=== PATIENT | male | born 1995 | race Caucasian/White ===

== ENCOUNTER 2021-06-14 12:33 | Emergency (ER) | payer BC, SELFPAY ==
[2021-06-14 12:35] VITALS: BP 144/85; PULSE 98; RESP 18; TEMP 36.7; O2SAT 100
[2021-06-14 12:55] LABS: Basophils Percent Auto 0.3 % (0.2-1.2); Eosinophils Absolute Auto 0.1 K/mm3 (0-0.3); Eosinophils Percent Auto 1.8 % (0-4.4); Hematocrit 47.1 % (42.0-52.0); Hemoglobin 16.5 g/dL (14.0-18.0); Immature Granulocyte Absolute 0.01 K/mm3 (0.00-0.031); Immature Granulocyte Percent A 0.2 % (0-0.5); Lymphocytes Absolute Auto 1.27 K/mm3 (0.9-3.2); Lymphocytes Percent Auto 20.2 % (18.3-44.2); Mean Corpuscular Hemoglobin 30.6 pg (26-34); Mean Corpuscular Volume 87.4 fl (80-100); Mean Platelet Volume 9.7 fl (7.4-10.4); Monocytes Absolute Auto 0.8 K/mm3 (0.1-0.6); Monocytes Percent Auto 12.4 % (2.6-8.5); Neutrophils Absolute Auto 4.1 K/mm3 (1.3-6.7); Neutrophils Percent Auto 65.1 % (45.5-73.1); Platelet Count Result 212 k/mm3 (150-375); Red Blood Count 5.39 M/mm3 (4.6-6.20); Red Cell Distribution Width 12.5 % (11.5-14.5); White Blood Count 6.3 K/mm3 (4.5-10.0)
[2021-06-14 13:05] LABS: Ethanol < 10 mg/dL (<10)
[2021-06-14 13:31] LABS: Alanine Aminotransferase 37 U/L (4-50); Alkaline Phosphatase 88 U/L (38-126); Anion Gap 10 mmol/L (8-16); Aspartate Amino Transferase 30 U/L (17-59); Bilirubin,Total 1.1 mg/dL (0.2-1.3); Blood Urea Nitrogen 14 mg/dL (9-20); Calcium 9.3 mg/dL (8.4-10.2); Carbon Dioxide 27 mmol/L (22-30); Chloride 102 mmol/L (98-107); Estimated CRCL calculation 140 ml/min; Estimated Glomerular Filt Rate > 60; Glucose 109 mg/dL (65-110); Sodium 139 mmol/L (137-145)
--- NOTE | 2021-06-14 14:02 | ED.GENADULT ---
HPI - General Adult General Chief complaint: Psychiatric Symptoms Stated complaint: psych Time Seen by Provider: 06/14/21 13:44 Source: patient Mode of arrival: ambulatory Limitations: no limitations History of Present Illness HPI narrative: Patient 25-year-old male who presents the ED with reports of depression and recent SI. Patient reports he had significant depression in 2016 and was started on antidepressants at that time. He is unsure of the name of these. He began feeling better with his depression and was taken off antidepressants. He was tapered properly. He has not been on antidepressants in the past 2 years. Since February 2021, patient reports having increased depressive symptoms, including apathy, decreased sleep, low energy, and intermittent suicidal thoughts. He does not have a plan to commit suicide and does not think he would ever go through with this. He has engaged in some self-harm over the last couple weeks including poking himself with a sharp knife. No cuts. He has an appointment to see a psychiatrist on 18 of July but did not feel he could wait that long, prompting his presentation to the ED today. No homicidal ideation, AVH. Patient denies any fever, chills, chest pain, shortness of breath, abdominal pain, nausea, vomiting, headache. Related Data Allergies Allergy/AdvReac Type Severity Reaction Status Date / Time No Known Allergies Allergy Unknown Unverified 03/20/18 08:22 Review of Systems Review of Systems: CONSTITUTIONAL: Denies fever, chills, or sweats. CARDIOVASCULAR: Denies chest pain. RESPIRATORY: Denies dyspnea. GASTROINTESTINAL: Denies abdominal pain, nausea, vomiting. MUSCULOSKELETAL: Denies back pain, joint pain, or myalgia. NEUROLOGIC: Denies headache, numbness, or weakness. PSYCHIATRIC: Reports depression, SI, self-harm. Denies HI, AVH. All systems reviewed & are unremarkable except as noted in HPI and below PMFSH Past Medical History Medical History (Updated 06/14/21 @ 18:30 by Karen Chapman PA-C) Depression Surgical History Surgical History (Updated 06/14/21 @ 18:30 by Karen Chapman PA-C) No pertinent past surgical history Social History Social History (Updated 06/14/21 @ 18:31 by Karen Chapman PA-C) Smoking status: Never smoker Alcohol intake: current Substance use type: does not use Exam Narrative: GENERAL: Well appearing, well-nourished, non-toxic, in no acute distress. HEAD: Normocephalic, atraumatic. NECK: Supple. No adenopathy, no masses. RESPIRATORY: Airway patent, respirations nonlabored. Clear to auscultation bilaterally, no rales, rhonchi, wheezing. CARDIOVASCULAR: Regular rate and rhythm without murmurs, rubs, or gallops. Peripheral pulses 2+ and equal bilaterally. MUSCULOSKELETAL: Moves all extremities. Strength/ROM intact without gross deformities or TTP. No edema. No calf tenderness. SKIN: Warm, dry, normal color. No rashes. NEURO: A&O X3. Speech clear. Cranial nerves II-XII grossly intact. Steady gait. No ataxic movements. PSYCHIATRIC: Mildly depressed mood. Appropriate affect. Normal interaction. Course Reevaluation(s) Reevaluation #1: Patient is medically cleared to undergo psychiatric evaluation by crisis. Date: 06/14/21 Time: 15:17 Vital Signs Vital signs: Vital Signs Temperature 98.1 F 06/14/21 12:35 Pulse Rate 98 06/14/21 12:35 Respiratory Rate 18 06/14/21 12:35 Blood Pressure 144/85 H 06/14/21 12:35 Pulse Oximetry 100 06/14/21 12:35 Temperature 98.1 F 06/14/21 12:35 Pulse Rate 98 06/14/21 12:35 Respiratory Rate 18 06/14/21 12:35 Blood Pressure 144/85 H 06/14/21 12:35 Pulse Oximetry 100 06/14/21 12:35 Medical Decision Making [facility] Narrative Medical decision making narrative: Patient presented to ED with worsening depression over the last couple months with intermittent suicidal ideation. Vital signs stable upon arrival. Laboratory evaluation unremarkable. No leukocytosis. No anemia. No
[2021-06-14 14:43] LABS: Add Urine Microscopic? NO; Appearance Urine Clear (Clear); Bilirubin Urine Negative (Negative); Blood Urine Negative (Negative); Color Urine Yellow (Yellow); Glucose Urine UA Negative (Negative); Ketones Urine Negative (Negative); Leukocyte Esterase Ur Negative LEU/UL (Negative); Nitrate Urine Negative (Negative); Protein Urine Negative (Negative); Specific Grav Ur 1.017 (1.001-1.035); Urobilinogen Urine Negative mg/dL (<2.0)
[2021-06-14 15:08] LABS: Amphetamine Screen Urine Negative (Negative); Barbiturate Screen Urine Negative (Negative); Benzodiazepines Screen Urine Negative (Negative); Cannabinoid Screen Urine Negative (Negative); Cocaine Screen Urine Negative (Negative); Methadone Screen Urine Negative (Negative); Opiate Screen Urine Negative (Negative); Phencyclidine Screen Urine Negative (Negative)
[2021-06-14 18:32] VITALS: BP 122/78; PULSE 75; RESP 16; O2SAT 98
== END 2021-06-14 18:34 | disposition home or self-care (01) ==
PROVIDERS: Emergency Provider Emergency Medicine; PCP Family Medicine
DX: F32.A Depression, unspecified (principal)
CPT/HCPCS: 36415; 80053; 80307; 81003; 84443; 85025; 99284

== ENCOUNTER 2021-08-26 15:02 | Emergency (ER) | payer OTHER, BC, SELFPAY ==
--- NOTE | ~2021-08-26 | CT_ITS ---
EXAMINATION: CT brain wo con DATE: 08/26/2021 16:25 INDICATION: Head injury. Dizziness. Nausea. TECHNIQUE: Computed tomography (CT) of the head was performed without intravenous contrast. The mA wa s adjusted according to patient size. Iterative reconstruction technique was employed. Exam dose: 60 5.33 mGy-cm total exam DLP. COMPARISON: None FINDINGS: No intracranial mass lesion or hemorrhage, encephalomalacia, midline shift or mass effect. Normal ventricular size. Normal thomas-white matter differentiation. No subdural or epidural hematoma. No fracture or bone destruction of the cranial vault. There is mild echograms thickening of left frontal sinus and the ethmoid air cells and left sphenoid sinus. Slight mucoperiosteal thickening of right maxillary and sphenoid sinuses. The mastoid air cell s are normally developed and aerated. IMPRESSION: No intracranial abnormality or skull fracture Reviewed, dictated and finalized at [facility]. Reviewed, dictated and finalized at [facility].
[2021-08-26 15:08] VITALS: BP 138/77; PULSE 90; RESP 16; TEMP 36.6; O2SAT 100
--- NOTE | 2021-08-26 16:25 | ED.HEATRA ---
HPI - Head Injury General Chief complaint: Head Injury Stated complaint: head injury Time Seen by Provider: 08/26/21 15:15 Source: patient Mode of arrival: ambulatory Limitations: no limitations History of Present Illness HPI Narrative: This is a 26-year-old male that presents to the emergency department for head injury sustained earlier this morning. Reports he was at work and several cans fell onto his head from the top shelf. Reports he had an episode of vomiting and felt very dizzy. Since he has had a constant headache. He has not taken anything for his headache. He was evaluated by his primary doctor and sent to the ER for a CT scan. Denies numbness or weakness. Related Data Allergies Allergy/AdvReac Type Severity Reaction Status Date / Time No Known Allergies Allergy Unknown Unverified 03/20/18 08:22 Review of Systems Review of Systems: CONSTITUTIONAL: Denies fever, chills, or sweats. EYES: Denies visual changes, redness, or discharge. ENT: Denies rhinorrhea, congestion, sore throat, or otalgia. CARDIOVASCULAR: Denies chest pain, palpitations, or edema. RESPIRATORY: Denies cough or dyspnea. GASTROINTESTINAL: Denies abdominal pain, nausea, vomiting, or diarrhea. GENITOURINARY: Denies dysuria or hematuria. SKIN: Denies rash or itching. MUSCULOSKELETAL: Denies back pain, joint pain, or myalgia. NEUROLOGIC: Denies headache, numbness, or weakness. PSYCHIATRIC: Denies anxiety or depression. All systems reviewed & are unremarkable except as noted in HPI and below PMFSH Past Medical History Medical History (Updated 08/26/21 @ 16:37 by Mikki Trimble PA-C) Depression Surgical History Surgical History (Updated 06/14/21 @ 18:30 by Karen Chapman PA-C) No pertinent past surgical history Social History Social History (Updated 06/14/21 @ 18:31 by Karen Chapman PA-C) Smoking status: Never smoker Alcohol intake: current Substance use type: does not use Exam Narrative: GENERAL: Well-appearing, well-nourished, and in no acute distress. HEAD: Normocephalic, atraumatic. EYES: PERRLA and EOMI. ENT: Nares clear, no rhinorrhea or epistaxis. Mucous membranes moist. Oropharynx without tonsillar hypertrophy exudate or other lesions. Bilateral TMs pearly thomas non-bulging NECK: Supple. No adenopathy or masses. CHEST: Clear to auscultation. No respiratory distress. No wheezes rales or rhonchi HEART: Regular rate and rhythm. No murmur heard. Normal peripheral pulses. EXTREMITIES: Normal range of motion. No edema. Strength equal in bilateral upper extremities (5/5) SKIN: Warm, dry, no rash. NEURO: No focal deficits. Alert and oriented x3. Cranial nerves II through XII grossly intact PSYCH: Normal mood and affect Course Vital Signs Vital signs: Vital Signs Temperature 98 F 08/26/21 15:08 Pulse Rate 90 08/26/21 15:08 Respiratory Rate 16 08/26/21 15:08 Blood Pressure 138/77 08/26/21 15:08 Pulse Oximetry 100 08/26/21 15:08 Oxygen Delivery Room Air 08/26/21 15:08 Temperature 98 F 08/26/21 15:08 Pulse Rate 90 08/26/21 15:08 Respiratory Rate 16 08/26/21 15:08 Blood Pressure 138/77 08/26/21 15:08 Pulse Oximetry 100 08/26/21 15:08 Oxygen Delivery Room Air 08/26/21 15:08 MDM - Head Injury MDM Narrative Medical decision making narrative: Patient presents to the emergency department for a head injury sustained earlier today. His primary care doctor sent him for a CT scan of the brain. Patient is neurologically intact. CT scan of the brain without acute findings. He was educated on care of concussion. He is to follow-up with his primary care doctor. He was given warnings to return to the ER Imaging Data Radiologist's impression: ITS Impressions Head CT 08/26/21 16:27 IMPRESSION: No intracranial abnormality or skull fracture Critical Care Time Critical Care Time Critical Care Time: No Discharge Plan Discharge Clinical Impression: Con
[2021-08-26] MEDS: ACETAMINOPHEN 500 MG TABLET 1000 MG PO (16:30)
== END 2021-08-26 17:12 | disposition home or self-care (01) ==
PROVIDERS: Emergency Provider Emergency Medicine
DX: S06.0X0A Concussion without loss of consciousness, initial encounter (principal); W20.8XXA Other cause of strike by thrown, projected or falling object, initial encounter
CPT/HCPCS: 70450; 99284; A9270

== ENCOUNTER 2022-09-17 14:46 | Emergency (ER) | payer BC, SELFPAY ==
--- NOTE | ~2022-09-17 | CT_ITS ---
EXAMINATION: CT abdomen pelvis w con DATE: 09/17/2022 17:00 INDICATION: Abdominal pain. Blood in stool. TECHNIQUE: Computed tomography (CT) of the abdomen and pelvis was performed with 100 mL Omnipaque 350 intravenous contrast. Automated exposure control and iterative reconstruction technique were employe d. The dose-length product was 855.53 mGy-cm. COMPARISON: None. FINDINGS: The visualized portions of the lung bases are clear without pneumonia or pleural effusion. The heart size is normal. No pericardial effusion. There is bilateral gynecomastia. There is a small sliding hiatal hernia. The liver, gallbladder, spleen, pancreas, adrenal glands, and right kidney are normal. There is an 8 mm cyst in left kidney associated with focal cortical thinning. There are no d ilated loops of bowel. The appendix is normal. There is no free intraperitoneal fluid. There are no p athologically enlarged lymph nodes. There is a benign bone island in proximal left femur. There is mi ld thoracic and lumbar spondylosis. IMPRESSION: 1. Small sliding hiatal hernia. Reviewed, dictated and finalized at [facility].
[2022-09-17 14:49] VITALS: BP 142/90; PULSE 88; RESP 16; TEMP 36.6; O2SAT 99
[2022-09-17 15:14] LABS: Basophils Percent Auto 0.4 % (0.2-1.2); Eosinophils Absolute Auto 0.2 K/mm3 (0-0.3); Eosinophils Percent Auto 2.9 % (0-4.4); Hematocrit 45.7 % (42.0-52.0); Hemoglobin 16.5 g/dL (14.0-18.0); Immature Granulocyte Absolute 0.03 K/mm3 (0.00-0.031); Immature Granulocyte Percent A 0.4 % (0-0.5); Lymphocytes Absolute Auto 1.85 K/mm3 (0.9-3.2); Lymphocytes Percent Auto 26.9 % (18.3-44.2); Mean Corpuscular HGB Conc 36.1 g/dl (32-36); Mean Corpuscular Hemoglobin 30.2 pg (26-34); Mean Corpuscular Volume 83.7 fl (80-100); Monocytes Absolute Auto 0.4 K/mm3 (0.1-0.6); Monocytes Percent Auto 5.4 % (2.6-8.5); Neutrophils Absolute Auto 4.4 K/mm3 (1.3-6.7); Platelet Count Result 235 k/mm3 (150-375); Red Blood Count 5.46 M/mm3 (4.6-6.20); Red Cell Distribution Width 12.3 % (11.5-14.5); White Blood Count 6.9 K/mm3 (4.5-10.0)
[2022-09-17 15:24] LABS: Alanine Aminotransferase 43 U/L (6-50); Alkaline Phosphatase 117 U/L (38-126); Anion Gap 9 mmol/L (8-16); Aspartate Amino Transferase 25 U/L (17-59); Blood Urea Nitrogen 11 mg/dL (9-20); Calcium 9.7 mg/dL (8.4-10.2); Carbon Dioxide 28 mmol/L (22-30); Chloride 98 mmol/L (98-107); Estimated CRCL calculation 135 ml/min; Estimated Glomerular Filt Rate > 60; Glucose 334 mg/dL (65-110); Lipase 115 U/L (23-300); Potassium 4.4 mmol/L (3.4-5.0); Sodium 135 mmol/L (137-145)
[2022-09-17 15:24] LABS: Appearance Urine Clear (Clear); Bilirubin Urine Negative (Negative); Blood Urine Negative (Negative); Color Urine Yellow (Yellow); Glucose Urine UA 3+ mg/dL (Negative); Ketones Urine 1+ mg/dL (Negative); Leukocyte Esterase Ur Negative LEU/UL (Negative); Nitrate Urine Negative (Negative); Protein Urine Negative (Negative); Urobilinogen Urine 0.2 mg/dL (<2.0)
[2022-09-17 15:30] LABS: Specific Grav Ur 1.042 (1.001-1.035)
[2022-09-17 15:31] LABS: Add Urine Microscopic? NO
[2022-09-17 16:06] LABS: Hemoglobin A1C 11.1 % (<5.7)
--- NOTE | 2022-09-17 16:45 | ED.ABDPAIN ---
HPI - Abdominal Pain General Chief Complaint: Abdominal Pain Stated Complaint: Blood in stool Time Seen by Provider: 09/17/22 15:23 Source: patient Mode of arrival: ambulatory Limitations: no limitations History of Present Illness HPI narrative: This is a 27 year old male that presents to the ER for abdominal pain. Ongoing over the last couple of weeks. Associated with constipation. Reports he has seen bright red blood in his stool. Denies fever, vomiting or dysuria. Related Data Home Medications Medication Instructions Recorded Confirmed sertraline 25 mg tablet 25 mg PO DAILY 12/02/21 Allergies Allergy/AdvReac Type Severity Reaction Status Date / Time shrimp Allergy Severe Itching Verified 09/17/22 14:54 Review of Systems Review of Systems: CONSTITUTIONAL: Denies fever GASTROINTESTINAL: Reports abdominal pain. Denies nausea, vomiting, or diarrhea. GENITOURINARY: Denies dysuria All systems reviewed & are unremarkable except as noted in HPI and below PMFSH Past Medical History Medical History Depression Surgical History Surgical History No pertinent past surgical history Social History Social History Smoking status: Never smoker Alcohol intake: current Substance use type: does not use Exam Narrative: GENERAL: Well-appearing, well-nourished, and in no acute distress. HEAD: Normocephalic, atraumatic. EYES: EOMI. CHEST: Clear to auscultation. No respiratory distress. No wheezes rales or rhonchi HEART: Regular rate and rhythm. No murmur heard. Normal peripheral pulses. ABDOMEN: Soft, nondistended, normal active bowel sounds. Mild tenderness to palpation throughout the lower abdomen, without guarding EXTREMITIES: Normal range of motion. No edema. SKIN: Warm, dry, no rash. NEURO: No focal deficits. Alert and oriented x3. PSYCH: Normal mood and affect RECTAL: No active bleeding of a small fissure noted. Course Course Emergency Course: Patient and family updated on work-up and agree with plan of care Vital Signs Vital signs: Vital Signs Temperature 97.8 F 09/17/22 14:49 Pulse Rate 88 09/17/22 14:49 Respiratory Rate 16 09/17/22 14:49 Blood Pressure 142/90 H 09/17/22 14:49 Pulse Oximetry 99 09/17/22 14:49 Oxygen Delivery Room Air 09/17/22 14:49 Temperature 97.8 F 09/17/22 14:49 Pulse Rate 75 09/17/22 17:12 Respiratory Rate 18 09/17/22 17:12 Blood Pressure 128/87 09/17/22 17:12 Pulse Oximetry 100 09/17/22 17:12 Oxygen Delivery Room Air 09/17/22 14:49 MDM - Abdominal Pain MDM Narrative Medical decision making narrative: Patient presents to the emergency department for abdominal pain and constipation. Reports intermittently noting blood in the stool. Patient noted to have a small fissure which is not actively bleeding. His vitals are stable. Hemoglobin is normal. Metabolic panel with elevation in blood glucose to 334. Otherwise no concerning findings. Lipase is normal. UA without evidence of infection. CT scan of the abdomen and pelvis without acute findings. Patient reports recently being diagnosed with diabetes, but has not been taking his metformin. He was instructed on the importance of doing this and having close follow-up with his primary provider. He was also instructed on further care of his fissure with managing his constipation. He was given warnings to return to the ER Differential Diagnosis Differential diagnosis: Likely constipation, diverticulitis, small bowel obstruction and other (Fissure, hemorrhoids) Lab Data Attestation: I reviewed the patient's lab results. 09/17/22 15:08 09/17/22 15:08 Labs: Lab Results 09/17/22 09/17/22 Range/Units 15:08 15:13 WBC 6.9 (4.5-10.0) K/mm3 RBC 5.46 (4.6-6.20) M/mm3 Hgb 16.5 (14.0-18.0
[2022-09-17 17:12] VITALS: BP 128/87; PULSE 75; RESP 18; O2SAT 100
[2022-09-17 18:26] VITALS: BP 143/91; PULSE 89; RESP 15; O2SAT 100
== END 2022-09-17 18:29 | disposition home or self-care (01) ==
PROVIDERS: Emergency Medicine; Emergency Provider Physician Assistant
DX: K60.2 Anal fissure, unspecified (principal); E11.9 Type 2 diabetes mellitus without complications; K59.00 Constipation, unspecified
CPT/HCPCS: 36415; 74177; 80053; 81003; 83036; 83690; 85025; 99284; Q9967

== ENCOUNTER 2022-11-29 16:06 | Emergency (ER) | payer BC, SELFPAY ==
[2022-11-29] VITALS (25 sets, daily range): BP systolic 112–130; BP diastolic 65–81; PULSE 71–95; RESP 11–20; TEMP 36.4–36.7; O2SAT 92–100
--- NOTE | ~2022-11-29 | CT_ITS ---
EXAMINATION: CT brain wo con DATE: 11/29/2022 17:50 INDICATION: head injury, LOC . TECHNIQUE: Computed tomography (CT) of the head was performed without intravenous contrast. The mA wa s adjusted according to patient size. Iterative reconstruction technique was employed. The dose-lengt h product was 529.67 mGy-cm. Sagittal reformatted images were not immediately available for review. COMPARISON: None. FINDINGS: No acute intracranial hemorrhage or extra-axial fluid collection. No hydrocephalus, mass, or herniation. No acute ischemic infarct. Unremarkable dural venous sinus attenuation. No acute osseous abnormality. The aerated spaces are clear. IMPRESSION: No acute intracranial process. Reviewed, dictated and finalized at [facility].
--- NOTE | 2022-11-29 16:22 | ECG_ITS ---
Measurements Intervals [place] Rate: 86 P: 31 FL: 134 QRS: 38 QRSD: 95 T: 36 QT: 342 QTc: 409 Interpretive Statements SINUS RHYTHM WITH MARKED SINUS ARRHYTHMIA BASELINE ARTIFACT- I, III, AVR, AVL, V2 NORMAL ECG NO PREVIOUS ECG AVAILABLE FOR COMPARISON Electronically Signed On 11-30-2022 6:55:30 CDT by Brice Buenrostro D.O.
--- NOTE | 2022-11-29 16:42 | ED.GENADULT ---
HPI - General Adult General Chief complaint: Head Injury Stated complaint: Passed out at work, hit head on concrete floor Time Seen by Provider: 11/29/22 16:14 History of Present Illness HPI narrative: 27-year-old male present to the emergency department for evaluation after having a syncopal episode. Patient was feeling lightheaded and dizzy today. Patient has some nausea without vomiting. Patient states that he has been out of his Trulicity and his blood sugars have been running high. Patient states while he was sitting in a chair at work he had further lightheadedness fell forward and struck his head. Patient is unsure how long he was unconscious. Upon arrival to the ED patient is complaining of a headache. Patient denies any other pain or injury from the fall. Related Data Home Medications Medication Instructions Recorded Confirmed sertraline 25 mg tablet 25 mg PO DAILY 12/02/21 bupropion HCl 300 mg 24 hr tablet, 300 mg PO QAM 10/29/22 extended release buspirone 5 mg tablet 5 mg PO BID 10/29/22 10/29/22 cholecalciferol (vitamin D3) 50 50 mcg PO DAILY 10/29/22 10/29/22 mcg (2,000 unit) capsule dulaglutide 0.75 mg/0.5 mL 0.75 mg subcut WEEKLY 10/29/22 10/29/22 subcutaneous pen injector ([facility]) ibuprofen 200 mg-diphenhydramine 1 cap PO QHS PRN 10/29/22 10/29/22 HCl 25 mg capsule (Advil PM Liqui-Gels) melatonin 3 mg capsule 3 mg PO QHS 10/29/22 10/29/22 metformin 1,000 mg tablet 1,000 mg PO BID 10/29/22 10/29/22 Allergies Allergy/AdvReac Type Severity Reaction Status Date / Time shrimp Allergy Severe Itching Verified 11/29/22 16:12 Review of Systems Review of Systems: All systems reviewed & are unremarkable except as noted in HPI and below PMFSH Past Medical History Medical History Depression Surgical History Surgical History No pertinent past surgical history Social History Social History Smoking status: Never smoker Alcohol intake: current Substance use type: does not use Exam Narrative: APPEARANCE: Well appearing, no pain, no distress, well-nourished. HEAD: normocephalic, atraumatic. EYES: PERRLA/EOMI, conjunctivae clear. NOSE: Normal no drainage NECK: Supple. No adenopathy, no masses. RESPIRATORY: Airway patent, respirations nonlabored. Clear to auscultation bilaterally, no rales, rhonchi, wheezing. CARDIOVASCULAR: Regular rate and rhythm without murmurs rubs or gallops. ABDOMINAL: Soft, nontender, nondistended, normal bowel sounds MUSCULOSKELETAL: Moves all extremities. Strength/ROM intact, No edema, No calf tenderness. NEURO: Alert. Cranial nerves II through XII intact. Grossly intact SKIN: Warm, dry. Normal Color Course Course Emergency Course: 27-year-old male presented ED for evaluation of lightheaded dizziness nausea and head injury. After rehydration patient was orthostatic negative. Patient was afebrile with no leukocytosis and a stable hemoglobin. No significant abnormalities on the patient's CMP. Patient's head CT showed no acute normalities. Patient did feel improved. Patient and family updated the results of the work-up and patient was encouraged of close follow-up with his primary care physician. Patient states he is restarting his Trulicity in 2 days. In the meantime patient was encouraged to drink plenty of fluids and to follow a diabetic diet Vital Signs Vital signs: Vital Signs Temperature 97.5 F L 11/29/22 16:09 Pulse Rate 86 11/29/22 16:09 Respiratory Rate 18 11/29/22 16:09 Blood Pressure 122/69 11/29/22 16:09 Pulse Oximetry 100 11/29/22 16:09 Oxygen Delivery Room Air 11/29/22 16:09 Temperature 98.0 F 11/29/22 19:41 Pulse Rate 71 11/29/22 19:41 Respiratory Rate 15 11/29/22 19:41 Blood Pressure 128/80 11/29/22 19:41 Pulse Oximetry
[2022-11-29] MEDS: SODIUM CHLORIDE 0.9% IV 1,000 ML 999 ML IV CONT ×2 (16:57)
[2022-11-29 16:58] LABS: Basophils Percent Auto 0.4 % (0.2-1.2); Eosinophils Absolute Auto 0.1 K/mm3 (0-0.3); Eosinophils Percent Auto 1.9 % (0-4.4); Hematocrit 41.7 % (42.0-52.0); Hemoglobin 14.3 g/dL (14.0-18.0); Immature Granulocyte Absolute 0.03 K/mm3 (0.00-0.031); Immature Granulocyte Percent A 0.4 % (0-0.5); Lymphocytes Percent Auto 17.6 % (18.3-44.2); Mean Corpuscular HGB Conc 34.3 g/dl (32-36); Mean Corpuscular Hemoglobin 30.2 pg (26-34); Mean Corpuscular Volume 88.2 fl (80-100); Mean Platelet Volume 9.7 fl (7.4-10.4); Monocytes Absolute Auto 0.7 K/mm3 (0.1-0.6); Monocytes Percent Auto 9.1 % (2.6-8.5); Neutrophils Absolute Auto 5.2 K/mm3 (1.3-6.7); Neutrophils Percent Auto 70.6 % (45.5-73.1); Platelet Count Result 263 k/mm3 (150-375); Red Blood Count 4.73 M/mm3 (4.6-6.20); Red Cell Distribution Width 13.5 % (11.5-14.5); White Blood Count 7.4 K/mm3 (4.5-10.0)
[2022-11-29 17:09] LABS: Alanine Aminotransferase 27 U/L (6-50); Albumin Level 4.5 g/dL (3.5-5.1); Alkaline Phosphatase 67 U/L (38-126); Anion Gap 8 mmol/L (8-16); Aspartate Amino Transferase 28 U/L (17-59); Bilirubin,Total 0.7 mg/dL (0.2-1.3); Blood Urea Nitrogen 14 mg/dL (9-20); Calcium 9.3 mg/dL (8.4-10.2); Carbon Dioxide 26 mmol/L (22-30); Chloride 104 mmol/L (98-107); Estimated CRCL calculation 135 ml/min; Estimated Glomerular Filt Rate > 60; Glucose 104 mg/dL (65-110); Potassium 4.7 mmol/L (3.4-5.0); Sodium 138 mmol/L (137-145)
[2022-11-29 17:12] LABS: Magnesium 2.1 mg/dL (1.6-2.3)
[2022-11-29 17:48] LABS: Thyroid Stimulating Hormone Reflex 0.918 uIU/mL (0.465-4.68)
== END 2022-11-29 19:35 | disposition home or self-care (01) ==
PROVIDERS: Emergency Provider Emergency Medicine; PCP Nurse Practitioner Family
DX: S09.90XA Unspecified injury of head, initial encounter (principal); E11.65 Type 2 diabetes mellitus with hyperglycemia; R11.0 Nausea; F32.A Depression, unspecified; Z79.84 Long term (current) use of oral hypoglycemic drugs; Z79.85 Long-term (current) use of injectable non-insulin antidiabetic drugs; W07.XXXA Fall from chair, initial encounter
CPT/HCPCS: 36415; 70450; 80053; 83735; 84443; 85025; 93005; 96360; 99284; J7030

== ENCOUNTER 2022-12-12 08:11 | Outpatient (CLI) | payer BC, SELFPAY ==
--- NOTE | 2022-12-23 17:42 | WPDHOMESLEEP ---
Sleep Study - Home Unattended Date of Study: 12/12/22 Ordering Provider: AKUA Simpson Interpreting Provider: Ankita Mosley, DO Home Sleep Study Type: Watch PAT Height: 1.83 m Weight: 102.058 kg Body Mass Index: 30.5 Neck Circumference (inches): 17 [place]: 14 Reason for Sleep Study Snoring Sleep History The patient is a 27-year-old male with anxiety, depression and diabetes that had a sleep study ordered by the pulmonary group for evaluation of sleep apnea. the patient rarely awakens from sleep short of breath. He occasionally awakens at night with heartburn, belching or cough. He constantly snores but it is rarely loud enough that others complain. He frequently has trouble sleeping when he has a cold. He occasionally wakes up gasping for air throughout the night. He rarely has breathing problems at night observed by himself or others. He frequently sweats excessively at night. He rarely has heart palpitations or irregular heartbeats during the night. He constantly falls asleep during the day but rarely while driving. He rarely experiences loss of muscle tone when extremely emotional. He frequently has trouble at school or work due to sleepiness. He occasionally feels unable to move while waking up or falling asleep. He rarely experiences vivid dreamlike scenes upon awakening or falling asleep. He denies feeling afraid of going to sleep. He rarely has nightmares and rarely remembers his dreams. He occasionally has thoughts racing through his mind. He frequently feels sad, depressed and anxious. He rarely has muscular tension. He rarely notices parts of his body jerk. He rarely kicks during the night. He denies having crawling and aching feelings in his legs but rarely has leg pain during the night. He rarely grinds his teeth during sleep and rarely awakens with morning jaw pain. He is occasionally bothered by pain during the day but rarely awakened by pain during the night. He occasionally wakes up feeling stiff in the morning. He rarely wakes up with sore or achy muscles. He rarely wakes up with pain in the neck, spine or other joints. He goes to bed between 1-3 a.m. on both weekdays and weekends. It takes him 30 minutes to fall asleep. He wakes up twice at most throughout the night for unknown reasons but it takes him more than 30 minutes to fall back asleep. He wakes up around 11:00 a.m. on both weekdays and weekends. He typically gets 5-10 hours of sleep per night. He will stay in bed for 30 minutes after waking up in the morning. He currently lives with his parents and siblings. He will consume caffeinated beverages within 2 hours of bedtime. He denies engaging in physical exercise before bedtime. He will read watch television before falling asleep. He will take naps in afternoon or the evening but they are not refreshing. He consumes 30 oz of caffeinated beverage per day. He denies tobacco, alcohol and recreational drug use. [facility] Past Medical History Medical History Depression Surgical History Surgical History No pertinent past surgical history Social History Social History Smoking status: Never smoker Alcohol intake: current Substance use type: does not use Medications Home Medications Medication Instructions Recorded Confirmed Type sertraline 25 mg tablet 25 mg PO DAILY 12/02/21 History bupropion HCl 300 mg 24 hr tablet, 300 mg PO QAM 10/29/22 History extended release buspirone 5 mg tablet 5 mg PO BID 10/29/22 10/29/22 History cholecalciferol (vitamin D3) 50 50 mcg PO DAILY 10/29/22 10/29/22 History mcg (2,000 unit) capsule dulaglutide 0.75 mg/0.5 mL 0.75 mg subcut WEEKLY 10/29/22 10/29/22 History subcutaneous pen injector (Trulicity) ibuprofen 200 mg-diphenhydramine 1 cap PO
[2022-12-23 17:51] VITALS: BMI 30.5
== END 2022-12-12 12:00 | disposition home or self-care (01) ==
LOC: ANHCSM 08:12
PROVIDERS: PCP Nurse Practitioner Family; Visit Provider Physician Assistant
DX: G47.10 Hypersomnia, unspecified (principal); F41.8 Other specified anxiety disorders; E11.9 Type 2 diabetes mellitus without complications
CPT/HCPCS: 95800

== ENCOUNTER 2024-05-03 08:29 | Emergency (ER) | payer OTHER, SELFPAY ==
[2024-05-03 08:46] VITALS: BP 122/71; PULSE 89; RESP 16; TEMP 35.6; O2SAT 100
--- NOTE | 2024-05-03 08:59 | ED_ITS ---
HPI - URI/Sore Throat General Chief Complaint: Upper Respiratory Infection Stated Complaint: ROACH,sinus pressure Time Seen by Provider: 05/03/24 08:59 Source: patient, RN notes reviewed and old records reviewed Mode of arrival: ambulatory Limitations: no limitations History of Present Illness HPI Narrative: Patient presents with complaints of headache and sinus pressure for about 1 month. States over past week symptoms have worsened. He did get a root canal last week, states that symptoms significantly worsened after this. He denies any fever, chills, sweats. He has been taking Tylenol and ibuprofen for his symptoms Related Data Home Medications ?Medication ?Instructions ?Recorded ?Confirmed ?Last Taken ?Type sertraline 25 mg tablet 25 mg PO DAILY 12/02/21 Unknown History bupropion HCl 300 mg 24 hr tablet, 300 mg PO QAM 10/29/22 Unknown History extended release buspirone 5 mg tablet 5 mg PO BID 10/29/22 10/29/22 Unknown History cholecalciferol (vitamin D3) 50 50 mcg PO DAILY 10/29/22 10/29/22 Unknown History mcg (2,000 unit) capsule dulaglutide 0.75 mg/0.5 mL 0.75 mg subcut WEEKLY 10/29/22 10/29/22 Unknown History subcutaneous pen injector (Trulicity) ibuprofen 200 mg-diphenhydramine 1 cap PO QHS PRN 10/29/22 10/29/22 Unknown History HCl 25 mg capsule (Advil PM Liqui-Gels) melatonin 3 mg capsule 3 mg PO QHS 10/29/22 10/29/22 Unknown History metformin 1,000 mg tablet 1,000 mg PO BID 10/29/22 10/29/22 Unknown History Allergies Allergy/AdvReac Type Severity Reaction Status Date / Time shrimp Allergy Severe Itching Verified 05/03/24 08:34 Review of Systems Review of Systems: All systems reviewed & are unremarkable except as noted in HPI and below Constitutional: Constitutional: Reports as per HPI and Reports no additional constitutional complaints ENT: Reports system reviewed and no additional complaints, except as documented, Reports as per HPI, Reports facial pain, Reports headache(s), Reports sinus pain and Reports sinus pressure Cardiovascular: Cardiovascular: Reports no additional cardiovascular complaints Respiratory: Respiratory: Reports no additional respiratory complaints Gastrointestinal: Gastrointestinal: Reports no additional gastrointestinal complaints PMFSH Past Medical History Medical History Depression Surgical History Surgical History No pertinent past surgical history Social History Social History Smoking status: Never smoker Alcohol intake: current Substance use type: does not use Comments At the time of my signature, I reviewed and agree with the nursing past medical, surgical, social, and family history. There is no relevant family history pertinent to the patient complaint. Exam Const: General: cooperative, no acute distress, alert and awake Orientation/consciousness: oriented to person, oriented to place and oriented to time HENMT: Head: normal to inspection Ears: TM abnormal dull bilateral Face/Nose/Sinus: sinus tenderness (left maxillary) and Facial tenderness on exam of face and sinuses Mouth: Yes moist mucous membranes Throat: postnasal drainage Resp: Effort & Inspection: normal respiratory effort and able to speak in complete sentences Auscultation: clear to auscultation bilaterally, no crackles, no rales, no rhonchi and no wheezes Cardio: Palpation: normal PMI Rate: regular rate Rhythm: regular rhythm Heart sounds: S1 normal heart sound present and S2 normal heart sound present Neuro: General: oriented to person, oriented to place and oriented to time Cranial nerves: Yes CN's II-XII intact bilaterally Psych: Appearance: grossly normal Thought process: Normal thought process present Insight: Good insight present (Psych) Judgement: Good judgement present (Psych) Course Course Level of Care: Express Care Visit Vital Signs Vital signs: Vital Signs Temperature 96.1 F L 05/03/24 08:46 Pulse Rate 89 05/03/24 08:46 Respiratory Rate 16 05/03/24 08:46 Blood Pressure 122/71 05/03/24 08:46 Pulse Oximetry 100 05/03/24 08:46 Oxygen Delivery Room Air 05/03/24 08:46 Temperature 96.1 F L 05/03/24 08:46 Pulse Rate 89 05/03/24 08:46 Respiratory Rate 16 05/03/24 08:46 Blood Pressure 122/71 05/03/24 08:46 Pulse Oximetry 100 05/03/24 08:46 Oxygen Delivery Room Air 05/03/24 08:46 Reviewed MDM - URI/Sore Throat MDM Narrative Medical decision making narrative: History and exam consistent with sinusitis. Start Augmentin and Flonase. Patient nontoxic appearing, stable for discharge home. Discharge instructions reviewed with patient, as well as provided in writing per nursing staff. The instructions also include specific and strict return/GO TO THE ER as well as f/u information. All questions have been answered, and the patient deny any further questions with discharge and discharge plan. Some parts of this dictation were generated by voice recognition software and may contain typographical and/or grammatical inaccuracies. Differential Diagnosis Differential diagnosis: Likely upper respiratory infection, otitis media and sinusitis Medical Records Attestation: I reviewed the patient's medical records. Discharge Plan Discharge Clinical Impression: Sinusitis Qualifiers: Sinusitis location: maxillary Chronicity: acute Recurrence: not specified as recurrent Qualified Code(s): J01.00 - Acute maxillary sinusitis, unspecified Patient Disposition: Home, Self-Care Condition: Stable Instructions: Antibiotic Form, Sinusitis (ED) Additional Instructions: Use medications as prescribed. Follow with primary care provider. Emergency department for new or worse symptoms Patient Language: Armenian Prescriptions: New amoxicillin-pot clavulanate 875-125 mg tablet 1 tablet PO Q12H Qty: 14 0RF fluticasone propionate [Allergy Relief (fluticasone)] 50 mcg/actuation spray,suspension 1 spray intranasal Q12H 14 Days Qty: 16 0RF Rx Instructions: administer into each nostril No Action sertraline 25 mg tablet 25 mg PO DAILY bupropion HCl 300 mg tablet extended release 24 hr 300 mg PO QAM buspirone 5 mg tablet 5 mg PO BID metformin 1,000 mg tablet 1,000 mg PO BID Trulicity 0.75 mg/0.5 mL pen injector 0.75 mg subcut WEEKLY cholecalciferol (vitamin D3) 50 mcg (2,000 unit) capsule 50 mcg PO DAILY Advil PM Liqui-Gels 200-25 mg capsule 1 cap PO QHS PRN melatonin 3 mg capsule 3 mg PO QHS eszopiclone [Lunesta] 2 mg tablet 2 mg PO ONCE Qty: 1 0RF Rx Instructions: Take with you to sleep lab on the night of sleep study. Follow-up/Referrals: Short,Katie Rhodes NP [Primary Care Provider] - 2 Weeks Stand Alone Forms: Work/School Release IP Time of Disposition: 09:09
== END 2024-05-03 09:15 | disposition home or self-care (01) ==
PROVIDERS: Emergency Provider Nurse Practitioner Family; PCP Nurse Practitioner Family
DX: J01.00 Acute maxillary sinusitis, unspecified (principal)
CPT/HCPCS: 99213; G0463

== ENCOUNTER 2024-05-31 13:56 | Emergency (ER) | payer OTHER, SELFPAY ==
[2024-05-31 14:04] VITALS: BP 146/70; PULSE 96; RESP 16; TEMP 36.1; O2SAT 100
--- NOTE | 2024-05-31 14:39 | ED_ITS ---
HPI - URI/Sore Throat General Chief Complaint: Upper Respiratory Infection Stated Complaint: sinus congestion Time Seen by Provider: 05/31/24 14:39 Source: patient and RN notes reviewed Mode of arrival: ambulatory Limitations: no limitations History of Present Illness HPI Narrative: 28 year old male presents with concern for 1.5 week history of sinus congestion, cough, drainage. He has been taking Sudafed without relief. He reports cough. MD elicited complaint: cough, nasal congestion and sinus pain Related Data Home Medications ?Medication ?Instructions ?Recorded ?Confirmed ?Last Taken ?Type sertraline 25 mg tablet 25 mg PO DAILY 12/02/21 Unknown History bupropion HCl 300 mg 24 hr tablet, 300 mg PO QAM 10/29/22 Unknown History extended release buspirone 5 mg tablet 5 mg PO BID 10/29/22 10/29/22 Unknown History cholecalciferol (vitamin D3) 50 50 mcg PO DAILY 10/29/22 10/29/22 Unknown History mcg (2,000 unit) capsule dulaglutide 0.75 mg/0.5 mL 0.75 mg subcut WEEKLY 10/29/22 10/29/22 Unknown History subcutaneous pen injector (Trulicity) ibuprofen 200 mg-diphenhydramine 1 cap PO QHS PRN 10/29/22 10/29/22 Unknown History HCl 25 mg capsule (Advil PM Liqui-Gels) melatonin 3 mg capsule 3 mg PO QHS 10/29/22 10/29/22 Unknown History metformin 1,000 mg tablet 1,000 mg PO BID 10/29/22 10/29/22 Unknown History Allergies Allergy/AdvReac Type Severity Reaction Status Date / Time shrimp Allergy Severe Itching Verified 05/03/24 08:34 Review of Systems Review of Systems: CONSTITUTIONAL: Denies malaise, chills, sweats, or fever. EYES: Denies visual changes, redness, or discharge. ENT: Reports rhinorrhea, congestion, sinus pain CARDIOVASCULAR: Denies chest pain, palpitations, or edema. RESPIRATORY: Reports cough. Denies dyspnea. GASTROINTESTINAL: Denies abdominal pain, nausea, vomiting, diarrhea SKIN: Denies rash or itching. MUSCULOSKELETAL: Denies myalgia. NEUROLOGIC: Denies headache. All systems reviewed & are unremarkable except as noted in HPI and below PMFSH Past Medical History Medical History Depression Surgical History Surgical History No pertinent past surgical history Social History Social History Smoking status: Never smoker Alcohol intake: current Substance use type: does not use Comments At time of signature, agree with nursing past medical, surgical, social and family history. There is no relevant family history pertinent to the presenting complaint Exam Narrative: GENERAL: [id number], well-nourished, and in no acute distress. HEAD: Normocephalic EYES: PERRLA, conjunctivae clear ENT: Nares clear, turbinates edematous and erythematous. Mucous membranes moist. TM pearly thomas with dull light reflex bilaterally; no tragal tenderness. Oropharynx not erythematous without lesions. Tonsils not enlarged and without exudate, no drooling, no hoarseness, no trismus, uvula midline. NECK: Supple. No lymphadenopathy CHEST: Clear to auscultation, breath sounds equal. No wheezing, rhonchi, rales, or stridor. No respiratory distress, speaks in full sentences. HEART: Regular rate and rhythm. No murmur heard. SKIN: Warm, dry, no rash. NEURO: Alert and oriented x3. PSYCH: Normal mood and affect Course Course Emergency Course: Patient is aware of diagnosis, understands and agrees to treatment plan. Anticipatory guidance given. Patient agrees to follow-up as directed and is aware of reasons to seek care at the emergency department. Portions of this record may have been created with voice recognition software Level of Care: Express Care Visit Vital Signs Vital signs: Vital Signs Temperature 97.0 F L 05/31/24 14:04 Pulse Rate 96 05/31/24 14:04 Respiratory Rate 16 05/31/24 14:04 Blood Pressure 146/70 H 05/31/24 14:04 Pulse Oximetry 100 05/31/24 14:04 Oxygen Delivery Room Air 05/31/24 14:04 Temperature 97.0 F L 05/31/24 14:04 Pulse Rate 96 05/31/24 14:04 Respiratory Rate 16 05/31/24 14:04 Blood Pressure 146/70 H 05/31/24 14:04 Pulse Oximetry 100 05/31/24 14:04 Oxygen Delivery Room Air 05/31/24 14:04 Reviewed. MDM - URI/Sore Throat MDM Narrative Medical decision making narrative: Differential diagnosis considered: Peres virus, strep pharyngitis, allergic rhinitis, upper respiratory tract infection, sinusitis, rhinosinusitis, nasopharyngitis. viral pharyngitis, otitis media, otitis externa, pneumonia, bronchitis, viral cough syndrome, viral syndrome, and influenza. Exam findings show no acute concerns or changes; patient is non-toxic appearing and is in no distress. Patient is appropriate for outpatient treatment and follow-up. Lab Data Attestation: I reviewed the patient's lab results. Critical Care Time Critical Care Time Critical Care Time: No Discharge Plan Discharge Clinical Impression: Sinobronchitis Patient Disposition: Home, Self-Care Condition: Stable Instructions: Antibiotic Form, Sinusitis (ED) Additional Instructions: Take medication as prescribed Recommend antihistamine such as Benadryl at night time and Zyrtec or Anette during the day Also, recommend symptomatic treatment includes: rest, fluids, and increase humidity of the air at home. Recommend Acetaminophen as directed on the bottle to reduce fever, pain, headache. Avoid smoking/second-hand smoke. Please schedule a follow-up visit with your personal physician for further evaluation and treatment within 3-5days. Including recheck and discussion of your blood pressure. If your symptoms persist, change or worsen significantly before you can contact your personal physician then please, without delay, go to the emergency department for further evaluation. Patient Language: Indonesian Prescriptions: New methylprednisolone [Medrol (Charles)] 4 mg tablets,dose pack See Rx Instructions .ROUTE .COMPLEX Qty: 21 0RF Rx Instructions: orally per package directions amoxicillin-pot clavulanate 875-125 mg tablet 1 tablet PO Q12H 10 Days Qty: 20 0RF No Action amoxicillin-pot clavulanate 875-125 mg tablet 1 tablet PO Q12H Qty: 14 0RF fluticasone propionate [Allergy Relief (fluticasone)] 50 mcg/actuation spray,suspension 1 spray intranasal Q12H 14 Days Qty: 16 0RF Rx Instructions: administer into each nostril sertraline 25 mg tablet 25 mg PO DAILY bupropion HCl 300 mg tablet extended release 24 hr 300 mg PO QAM buspirone 5 mg tablet 5 mg PO BID metformin 1,000 mg tablet 1,000 mg PO BID Trulicity 0.75 mg/0.5 mL pen injector 0.75 mg subcut WEEKLY cholecalciferol (vitamin D3) 50 mcg (2,000 unit) capsule 50 mcg PO DAILY Advil PM Liqui-Gels 200-25 mg capsule 1 cap PO QHS PRN melatonin 3 mg capsule 3 mg PO QHS eszopiclone [Lunesta] 2 mg tablet 2 mg PO ONCE Qty: 1 0RF Rx Instructions: Take with you to sleep lab on the night of sleep study. Follow-up/Referrals: Short,Katie Rhodes NP [Primary Care Provider] - Stand Alone Forms: Work/School Release IP Time of Disposition: 14:47
== END 2024-05-31 14:55 | disposition home or self-care (01) ==
PROVIDERS: Emergency Provider Nurse Practitioner; PCP Nurse Practitioner Family
DX: J32.9 Chronic sinusitis, unspecified (principal); J40 Bronchitis, not specified as acute or chronic
CPT/HCPCS: 99213; G0463

== ENCOUNTER 2025-01-30 13:53 | Outpatient (CLI) | payer OTHER, SELFPAY ==
--- NOTE | ~2025-01-30 | CT_ITS ---
EXAMINATION: CT IAC/mastoids BI wo con DATE: 01/30/2025 14:12 INDICATION: Cholesteatoma of left ear. TECHNIQUE: Computed tomography (CT) of the temporal bones was performed without intravenous contrast. Automated exposure control and iterative reconstruction technique were employed. The dose-length product was 368.33 mGy-cm. COMPARISON: Head CT 11/29/2022 FINDINGS: RIGHT TEMPORAL BONE: The internal auditory canal, cochlea, vestibule, semicircular canals, vestibular aqueduct, carotid canal, jugular bulb, facial nerve course, ossicles, Prussak space, scutum, tympanic membrane, and external auditory canal are normal. There is a trace mastoid effusion. LEFT TEMPORAL BONE: The internal auditory canal, cochlea, vestibule, semicircular canals, vestibular aqueduct, carotid canal, jugular bulb, facial nerve course, ossicles, Prussak space, scutum, tympanic membrane, and external auditory canal are normal. There is a trace mastoid effusion. IMPRESSION: 1. No cholesteatoma identified. Reviewed, dictated and finalized at location E. [employer]JECT MANAGER
== END 2025-01-30 13:54 | disposition home or self-care (01) ==
PROVIDERS: PCP Nurse Practitioner Family; Visit Provider Otolaryngology
DX: H71.92 Unspecified cholesteatoma, left ear (principal)
CPT/HCPCS: 70480

== ENCOUNTER 2025-03-02 16:39 | Emergency (ER) | payer OTHER, SELFPAY ==
[2025-03-02 16:43] VITALS: BP 122/66; PULSE 111; RESP 16; TEMP 36.4; O2SAT 99
--- NOTE | 2025-03-02 17:17 | ED.NAVMDI ---
HPI - Nausea/Vomiting/Diarrhea General Chief complaint: Nausea/Vomiting/Diarrhea Stated complaint: N/V/D SINCE 1100 Time Seen by Provider: 03/02/25 16:55 History of Present Illness HPI Narrative: Patient is a 29-year-old male who presents to the ER with nausea that started at around 11:00 a.m. this morning. He reports around 4:00 p.m. he started experiencing a significant amount of emesis, mostly bile. Patient also endorses the start of diarrhea. He endorses a sore throat from vomiting. Patient denies any recent sick contacts, urinary symptoms, or recent fevers. He denies abdominal pain but endorses an upset stomach. patient endorses a history of diabetes, depression, and anxiety. Patient rates his pain at a 3 to 4/10. He reports he has not taken his blood sugar recently and takes a once weekly injection to control his sugars. Related Data Home Medications ?Medication ?Instructions ?Recorded ?Confirmed ?Last Taken ?Type sertraline 25 mg tablet 25 mg PO DAILY 12/02/21 Unknown History bupropion HCl 300 mg 24 hr tablet, 300 mg PO QAM 10/29/22 Unknown History extended release buspirone 5 mg tablet 5 mg PO BID 10/29/22 10/29/22 Unknown History cholecalciferol (vitamin D3) 50 50 mcg PO DAILY 10/29/22 10/29/22 Unknown History mcg (2,000 unit) capsule dulaglutide 0.75 mg/0.5 mL 0.75 mg subcut WEEKLY 10/29/22 10/29/22 Unknown History subcutaneous pen injector (Trulicity) ibuprofen 200 mg-diphenhydramine 1 cap PO QHS PRN 10/29/22 10/29/22 Unknown History HCl 25 mg capsule (Advil PM Liqui-Gels) melatonin 3 mg capsule 3 mg PO QHS 10/29/22 10/29/22 Unknown History metformin 1,000 mg tablet 1,000 mg PO BID 10/29/22 10/29/22 Unknown History Allergies Allergy/AdvReac Type Severity Reaction Status Date / Time shrimp Allergy Severe Itching Verified 03/02/25 16:40 Review of Systems Review of Systems: All systems reviewed & are unremarkable except as noted in HPI and below PMFSH Past Medical History Medical History Depression Surgical History Surgical History No pertinent past surgical history Social History Social History Smoking status: Never smoker Alcohol intake: current Substance use type: does not use Exam Narrative: GENERAL: ill appearing, Obese, non-toxic, in no acute distress. HEAD: Normocephalic, atraumatic. NECK: Supple. No adenopathy, no masses. RESPIRATORY: Airway patent, respirations nonlabored. Clear to auscultation bilaterally, no rales, rhonchi, wheezing. CARDIOVASCULAR: Regular rate and rhythm without murmurs, rubs, or gallops. Peripheral pulses 2+ and equal bilaterally. ABDOMINAL: Soft, nontender, nondistended, no hepatosplenomegaly. Normoactive BS. MUSCULOSKELETAL: Moves all extremities. Strength/ROM intact without gross deformities. SKIN: Warm, dry, pallor. No rashes. NEURO: A&O X3. Speech clear. Cranial nerves II-XII intact. No ataxic movements. PSYCHIATRIC: Appropriate mood and affect. Normal interaction. Course Vital Signs Vital signs: Vital Signs Temperature 36.4 C 03/02/25 16:43 Pulse Rate 111 H 03/02/25 16:43 Respiratory Rate 16 03/02/25 16:43 Blood Pressure 122/66 03/02/25 16:43 Pulse Oximetry 99 03/02/25 16:43 Temperature 36.4 C 03/02/25 16:43 Pulse Rate 111 H 03/02/25 16:43 Respiratory Rate 16 03/02/25 16:43 Blood Pressure 122/66 03/02/25 16:43 Pulse Oximetry 99 03/02/25 16:43 [facility] MDM Narrative Medical decision making narrative: Patient is a 29-year-old male who presents to the ER with nausea that started at around 11:00 a.m. this morning. He reports around 4:00 p.m. he started experiencing a significant amount of emesis, mostly bile. Patient also endorses the start of diarrhea. He endorses a sore throat from vomiting. Patient denies any recent sick contacts, urinary symptoms, or recent fevers. He denies abdominal pain but endorses an upset stomach. patient endorses a history of diabetes, depression, and anxiety. Patient rates his pain at a 3 to 4/10. He reports he has not taken his blood sugar recently and takes a once weekly injection to control his sugars. Labs Ordered: CBC, CMP, COVID/ flu / RSV, lipase, lactic acid Imaging Ordered: none necessary Medications Ordered: 1 L normal saline IV bolus, Zofran IV Results: patient's white blood cell count was elevated at 15.7. 1925- patient denies any urinary symptoms so he will be discharged without urinalysis results. Patient Education/Shared MDM: Results of lab work shared with patient. He endorses improvement of symptoms following medication administration. Patient strongly advised to maintain hydration status upon discharge and follow-up with his PCP for re-evaluation if his symptoms do not improved. He will be discharged home with a prescription for Bentyl and Zofran. Pt was advised to give Tylenol/Ibuprofen for pain and fever control. Strict return precautions provided. Patient verbalized understanding and is in agreement with plan. Vital signs stable at time of discharge. All questions answered. Differential Diagnosis Differential Diagnosis: gastroenteritis, influenza, COVID Lab Data MDM Lab Attestation statement: I personally reviewed the patient's lab results. 03/02/25 18:04 03/02/25 18:04 Labs: Lab Results 03/02/25 Range/Units 18:04 WBC 15.7 H (4.5-10.0) K/mm3 RBC 5.50 (4.6-6.20) M/mm3 Hgb 16.3 (14.0-18.0) g/dL Hct 46.4 (42.0-52.0) % MCV 84.4 (80-100) fl MCH 29.6 (26-34) pg MCHC 35.1 (32-36) g/dl RDW 12.6 (11.5-14.5) % Plt Count 249 (150-375) k/mm3 MPV 9.6 (7.4-10.4) fl Immature Gran % (Auto) 0.5 (0-0.5) % Neut % (Auto) 90.7 H (45.5-73.1) % Lymph % (Auto) 2.9 L (18.3-44.2) % [place] % (Auto) 5.1 (2.6-8.5) % Eos % (Auto) 0.6 (0-4.4) % Baso % (Auto) 0.2 (0.2-1.2) % Lymph # (Auto) 0.45 L (0.9-3.2) K/mm3 [place] # (Auto) 0.8 H (0.1-0.6) K/mm3 Eos # (Auto) 0.1 (0-0.3) K/mm3 Baso # (Auto) 0.0 (0.0-0.1) K/mm3 Abs Immat Gran (auto) 0.08 H (0.00-0.031) K/mm3 Absolute Neuts (auto) 14.3 H (1.3-6.7) K/mm3 Absolute Nucleated RBC 0.000 (0.0-0.012) K/mm3 Nucleated RBC % 0.0 (0.0-0.2) % Sodium 138 (137-145) mmol/L Potassium 4.1 (3.4-5.0) mmol/L Chloride 101 (98-107) mmol/L Carbon Dioxide 26 (22-30) mmol/L Anion Gap 11 (4-12) mmol/L BUN 18 (9-20) mg/dL Creatinine 0.92 (0.7-1.3) mg/dL Estim Creat Clear Calc 134 ml/min Estimated GFR > 60 (59 - ) Glucose 179 H (65-110) mg/dL Lactic Acid 1.4 (0.7-2.0) mmol/L Calcium 9.5 (8.4-10.2) mg/dL Total Bilirubin 1.1 (0.2-1.3) mg/dL AST 35 (17-59) U/L ALT 47 (6-50) U/L Alkaline Phosphatase 89 (38-126) U/L Total Protein 7.7 (6.3-8.2) g/dL Albumin 4.8 (3.5-5.1) g/dL Lipase 82 (23-300) U/L Influenza A (RT-PCR) Negative (Negative) Influenza B (RT-PCR) Negative (Negative) RSV (RT-PCR) Negative (Negative) SARS-CoV-2 RNA (RT-PCR) Negative (Negative) Discharge Plan Discharge Clinical Impression: Gastroenteritis Patient Disposition: Home Condition: Stable Instructions: Antibiotic Form, Gastroenteritis (ED) Additional Instructions: Please return to the ER with any worsening symptoms. Follow-up with primary care provider for re-evaluation if your symptoms do not improve. Take all medications as prescribed, including regularly scheduled medications. please take Zofran as needed for nausea and Bentyl as needed for abdominal cramping. Remember to drink water to keep yourself hydrated. Patient Language: Greenlandic Prescriptions: New ondansetron 4 mg tablet,disintegrating 4 mg PO Q6H PRN (Reason: nausea and vomiting) Qty: 20 0RF benzonatate 100 mg capsule 100 mg PO TID Qty: 20 0RF No Action methylprednisolone [Medrol (Charles)] 4 mg tablets,dose pack See Rx Instructions .ROUTE .COMPLEX Qty: 21 0RF Rx Instructions: orally per package directions amoxicillin-pot clavulanate 875-125 mg tablet 1 tablet PO Q12H 10 Days Qty: 20 0RF amoxicillin-pot clavulanate 875-125 mg tablet 1 tablet PO Q12H Qty: 14 0RF fluticasone propionate [Allergy Relief (fluticasone)] 50 mcg/actuation spray,suspension 1 spray intranasal Q12H 14 Days Qty: 16 0RF Rx Instructions: administer into each nostril sertraline 25 mg tablet 25 mg PO DAILY bupropion HCl 300 mg tablet extended release 24 hr 300 mg PO QAM buspirone 5 mg tablet 5 mg PO BID metformin 1,000 mg tablet 1,000 mg PO BID Trulicity 0.75 mg/0.5 mL pen injector 0.75 mg subcut WEEKLY cholecalciferol (vitamin D3) 50 mcg (2,000 unit) capsule 50 mcg PO DAILY Advil PM Liqui-Gels 200-25 mg capsule 1 cap PO QHS PRN melatonin 3 mg capsule 3 mg PO QHS eszopiclone [Lunesta] 2 mg tablet 2 mg PO ONCE Qty: 1 0RF Rx Instructions: Take with you to sleep lab on the night of sleep study. Follow-up/Referrals: Short,Katie Rhodes RESEARCH GENETICIST [Primary Care Provider, Nursing] Stand Alone Forms: Work/School Release IP Time of Disposition: 19:30
[2025-03-02] MEDS: SODIUM CHLORIDE 0.9% IV 1,000 ML 999 ML IV CONT (18:00)
[2025-03-02] MEDS: ONDANSETRON INJ 4 MG/2 ML VIAL IV PUSH (18:01)
[2025-03-02 18:14] LABS: Hematocrit 46.4 % (42.0-52.0); Hemoglobin 16.3 g/dL (14.0-18.0); Immature Granulocyte Percent A 0.5 % (0-0.5); Lymphocytes Absolute Auto 0.45 K/mm3 (0.9-3.2); Mean Corpuscular HGB Conc 35.1 g/dl (32-36); Mean Corpuscular Hemoglobin 29.6 pg (26-34); Mean Corpuscular Volume 84.4 fl (80-100); Nucleated Red Blood Cells Absolute Auto 0.000 K/mm3 (0.0-0.012); Nucleated Red Blood Cells Perc 0.0 % (0.0-0.2); Platelet Count Result 249 k/mm3 (150-375); Red Blood Count 5.50 M/mm3 (4.6-6.20); White Blood Count 15.7 K/mm3 (4.5-10.0)
[2025-03-02 18:24] LABS: Alanine Aminotransferase 47 U/L (6-50); Albumin Level 4.8 g/dL (3.5-5.1); Alkaline Phosphatase 89 U/L (38-126); Anion Gap 11 mmol/L (4-12); Aspartate Amino Transferase 35 U/L (17-59); Bilirubin,Total 1.1 mg/dL (0.2-1.3); Blood Urea Nitrogen 18 mg/dL (9-20); Calcium 9.5 mg/dL (8.4-10.2); Carbon Dioxide 26 mmol/L (22-30); Chloride 101 mmol/L (98-107); Estimated CRCL calculation 134 ml/min; Estimated Glomerular Filt Rate > 60; Glucose 179 mg/dL (65-110); Lipase 82 U/L (23-300); Potassium 4.1 mmol/L (3.4-5.0); Sodium 138 mmol/L (137-145); Total Protein 7.7 g/dL (6.3-8.2)
[2025-03-02 18:50] LABS: Influenza A QL RT-PCR Negative (Negative); Influenza B QL RT-PCR Negative (Negative); RSV RNA, RT-PCR Negative (Negative); SARS-CoV-2 RNA PCR Negative (Negative)
[2025-03-02 19:47] VITALS: BP 123/65; PULSE 99; RESP 16; TEMP 36.6; O2SAT 98
== END 2025-03-02 19:47 | disposition home or self-care (01) ==
PROVIDERS: Emergency Provider Registered Nurse; PCP Nurse Practitioner Family
DX: K52.9 Noninfective gastroenteritis and colitis, unspecified (principal); Z79.85 Long-term (current) use of injectable non-insulin antidiabetic drugs; F32.A Depression, unspecified; Z20.822 Contact with and (suspected) exposure to COVID-19
CPT/HCPCS: 36415; 80053; 83605; 83690; 85025; 87637; 96361; 96374; 99284; J2405; J7030